=== PATIENT | male | born 1980 | race Caucasian/White ===

== ENCOUNTER 2017-02-20 10:43 | Emergency (ER) | payer OTHER ==
[~2017-02-20] VITALS: Ht 175.3 cm; Wt 74.8 kg
--- NOTE | 2017-02-20 11:34 | Emergency Room Report ---
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 N Clinical Suspician of Infection? N Mental Status: 1 - Regular (Normal Baseline) Sepsis Risk:Low Sepsis Risk Have you (or family members/close friends) recently traveled outside the [place]? N If Yes, where/when: Have you had exposure to infectious disease within the past month? TB? Other? Specify: Source patient, RN notes reviewed, family, RN/MD Exam Limitations no limitations Comment This is a 36-year-old occasion male presenting to the emergency room with a LEFT fingertip laceration sustained around 10:30 AM, while at work, after accidentally slicing his fingertip with a knife. She denies any other associated injuries. ALLERGIES Coded Allergies: sulfamethoxazole (From BACTRIM) (Mild, 02/20/17) trimethoprim (From BACTRIM) (Mild, 02/20/17) History Medical History General More? No Immunization Hx Ped.Immunizations UTD Yes DT/Tetanus 1-4 Years Ago Surgical Hx Previous Surgery?Y TESTICLE SURGERY LEFT TESTICLE (3 TOTAL) Social History Smoking Hx Smoker: Never Smoker Tobacco: No Type N/A Are you/the child exposed to second-hand smoke: No Review of Systems All Other Systems Reviewed and Negative Skin lesions (LEFT index laceration) Physical Exam Vital Signs Vital Signs Date Time Temp Pulse Resp B/P Pulse O2 O2 Flow FiO2 Ox Delivery Rate 02/20 1136 95 18 124/75 99 02/20 1049 98.4 112 18 117/65 98 General Appearance normal appearance, WD/WN, mild distress, very anxious Respiratory Status Yes: trachea midline, chest symmetrical, non tender chest. No: respiratory distress. Lung Sounds bilateral: normal breath sounds, lungs clear. Cardiovascular normal exam, regular rate/rhythm, no peripheral edema, no gallop, no JVD, no murmur, no rub, normal peripheral pulses Gastrointestinal normal bowel sounds, normal exam, non tender, soft, no organomegaly Extremities normal range of motion, LEFT index with 0.5 cm subcutaneous laceration, mild venous bleeding Neurologic alert, taper printed circuit layout II-XII nml as tested, normal exam, oriented x 3 Mental status normal mood/affect Skin normal color, warm/dry, LEFT index tip with half centimeter subcutaneous laceration, linear, with mild venous bleeding, controlled with pressure. Medical Decision Making LABS/Meds/Orders Pt receiving controlled substance in ED? No Comment Advised patient that he will be needing sutures, in order to close his wound. Patient adamantly refused sutures, despite my repeated explanations that this is medically necessary. Pressure dressing applied over his LEFT index stable, patient instructed to change dressing daily per discharge instructions. Results/Orders Current Medication Orders Sig/Oma Start time Last Medication Dose Route Stop Time Status Admin Acetaminophen 0 .STK-MED ONE 02/20 1133 DCr PO Acetaminophen 1,000 MG ONCE ONE 02/20 1115 DCr 02/20 PO 02/20 1116 1135 Diphtheria/Pertussis/ 0.5 ML ONCE ONE 02/20 1100 DC 02/20 Tetanus Vacc IM 02/20 1101 1100 Diphtheria/Pertussis/ 0 .STK-MED ONE 02/20 1054 DC Tetanus Vacc IM Lidocaine HCl 0 .STK-MED ONE 02/20 1054 DC .ROUTE Procedures Laceration/Wound Repair Laceration/Wound Repair Risks/benefits discussed with pt/guardian? Yes Tetanus status up to date Wound Location finger(s) (LEFT second finger) Wound Length (cm) 0.5 Wound's Depth, Shape superficial Wound Explored clean Risk of retained FB explained to pt/guardian? Yes Irrigated w/ Saline (ccs) 10 Wound Prep Betadine, Saline Anesthesia 1% Lidocaine, Digital block Volume Anesthetic (ccs) 20 Wound Debrided none Wound Repaired With refused surgical sutures/closure Sterile Dressing Applied Yes Splint Applied No Departure Departure Time of Disposition 1132 Disposition DC Home or Self Care(routine) Clinical Impression Primary Impression: Laceration Condition STABLE Patient Instructions DI for Minor Laceration Additional Instructions This keep wound clean and dry, change dressing daily x 10 days, watch carefully for any possible local infection. Discharge Counseling Counseled pt/family regarding diagnosis, medications/RX, home care, follow up needs Comment This keep wound clean and dry, change dressing daily x 10 days, watch carefully for any possible local infection. ED Critical Care Critical Care No at 1203
[2017-02-20 11:36] VITALS: BP 124/75
--- OUTSIDE RECORDS SUMMARY | 2017-02-20 11:44 | External Medical Summary Rpt ---
Demographics Home Phone Preferred Language Welsh Marital Status Unknown Adventist Affiliation Unknown Race Unknown Ethnic Group Unknown Author Author , Organization [employer] Address Unknown Phone Unavailable Care Team Providers Care Silica Mixer Operator Name Role Phone [facility] Unavailable Unavailable HOSPITAL, [facility] LILLIAN MAURICIO Unavailable Unavailable ASAD CHEEMA HUHN, Unavailable Unavailable [facility], Unavailable Unavailable [facility] Unavailable Unavailable SERVICES, [facility] EARLINE HUTCHINSON, Ansley HUTCHINSON Purpose Continuity of Care Document - 02-24-2010 through 2016 Problems Code Diagnosis DOS Provider Status 7245 UNSPECIFIED 04-24-2010 [facility] 7291 UNSPECIFIED 04-24-2010 [facility] 89699 CONTUSION 04-24-2010 [facility] 4589 UNSPECIFIED 03-22-2010 [facility] 462 ACUTE 03-22-2010 [facility] 4659 ACUTE URIS 03-22-2010 [facility] UNSPECIFIED SERVICES SITE 21235 OTHER 03-22-2010 [place] [facility] 59191 WHEEZING 03-22-2010 [facility] 7862 COUGH 03-22-2010 [facility] 85996 PAINFUL 03-22-2010 [facility] 19523 DIAB W/O 03-05-2010 EARLINE HUTCHINSON COMP TYPE B II/UNS NOT STATED UNCNTRL 7078 CHRONIC 03-05-2010 EARLINE HUTCHINSON ULCER OF B OTHER SPECIFIED SITE 1330 SCABIES 02-24-2010 [facility] 6989 UNSPECIFIED 02-24-2010 [place] [facility] [id number] Encounters Encounter Start End Date Code Location Performer Type Date EMERGENCY [address]507 [place] 0 0 [facility] T VISIT LOW/MODER SEVERITY [facility] - 0 0 [facility] T EMERGENCY [address] [place] [facility]IC[place] [address] [facility] T VISIT HIGH/URGE NT SEVERITY EMERGENCY 46346 [facility] T VISIT MODERATE SEVERITY OFFICE 88744 [facility] 0 0 [facility] T VISIT 15 MINUTES [facility]ERG[facility] 82047 [facility] T VISIT MODERATE SEVERITY [facility] T
--- OUTSIDE RECORDS SUMMARY | 2017-02-20 11:44 | External Medical Summary Rpt ---
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 94905 CONTUSION 04-24-2010 [facility] 4589 UNSPECIFIED 03-22-2010 [facility] 462 ACUTE 03-22-2010 [facility] 4659 ACUTE URIS 03-22-2010 [facility] UNSPECIFIED SERVICES SITE 26728 OTHER 03-22-2010 [place] [facility] C[facility]ITY [facility] SINUSES 14599 WHEEZING 03-22-2010 [facility] 7862 COUGH 03-22-2010 [facility] 65718 PAINFUL 03-22-2010 [facility] 54877 DIAB W/O 03-05-2010 EARLINE HUTCHINSON COMP TYPE B II/UNS NOT STATED UNCNTRL 7078 CHRONIC 03-05-2010 EARLINE HUTCHINSON ULCER OF B OTHER SPECIFIED SITE 1330 SCABIES 02-24-2010 [facility] 6989 UNSPECIFIED 02-24-2010 [place] [facility] [id number] Encounters Encounter Start End Date Code Location Performer Type Date EMERGENCY 13905 [place] 0 0 [facility] T VISIT [facility]OW/MODER SEVERITY [facility] 0 [facility] [place] - 0 0 [facility] T EMERGENCY 71014 ZENAIDA HICKS 0 0 EMERGENCY [facility] SERVICES T VISIT HIGH/URGE NT SEVERITY EMERGENCY 12828 [facility] T VISIT MODERATE SEVERITY OFFICE 79308 [facility] 0 0 [facility] T VISIT 15 MINUTES EMERGENCY 94889 [facility] T VISIT MODERATE SEVERITY [facility] T
--- OUTSIDE RECORDS SUMMARY | 2017-02-20 11:45 | External Medical Summary Rpt ---
Author Author , Organization [employer] Address Unknown Phone Unavailable Care Team Providers Care Multiple Coil Winder Name Role Phone [facility] Unavailable Unavailable HOSPITAL, [facility] LILLIAN HICKS, LILLIAN HICKS Unavailable Unavailable ASAD CHEEMA, ANETTE, Unavailable Unavailable [facility], Unavailable Unavailable [facility] Unavailable Unavailable SERVICES, [facility] EARLINE HUTCHINSON, EVANGELINA, Ansley Unavailable [facility] Purpose Continuity of Care Document - 02-24-2010 through 2016 Problems Code Diagnosis DOS Provider Status 7245 UNSPECIFIED 04-24-2010 [facility] 7291 UNSPECIFIED 04-24-2010 [facility] 12107 CONTUSION 04-24-2010 [facility] 4589 UNSPECIFIED 03-22-2010 [facility] 462 ACUTE 03-22-2010 [facility] 4659 ACUTE URIS 03-22-2010 [facility] UNSPECIFIED SERVICES SITE 70864 OTHER 03-22-2010 [place] [facility] C[facility]ITY [facility] SINUSES 01267 WHEEZING 03-22-2010 [facility] 7862 COUGH 03-22-2010 [facility] 11351 PAINFUL 03-22-2010 [facility] 84164 DIAB W/O 03-05-2010 EARLINE HUTCHINSON COMP TYPE B II/UNS NOT STATED UNCNTRL 7078 CHRONIC 03-05-2010 EARLINE HUTCHINSON ULCER OF B OTHER SPECIFIED SITE 1330 SCABIES 02-24-2010 [facility] 6989 UNSPECIFIED 02-24-2010 [facility] Encounters Encounter Start End Date Code Location Performer Type Date EMERGENCY 36270 SH[place] 0 0 E [facility] T VISIT LOW/MODER SEVERITY [facility] [place] - 0 0 [facility] T EMERGENCY 13416 ZENA[place] [facility]IC[place] 0 0 EMERGENCY [facility] T VISIT HIGH/URGE NT SEVERITY EMERGENCY 30825 [place] 0 0 [facility] T VISIT MODERATE SEVERITY OFFICE 11367 [facility] 0 0 [facility] T VISIT 15 MINUTES [facility] - 0 0 [facility] T EMERGENCY 37068 [place] 0 0 [facility] T VISIT MODERATE SEVERITY
--- OUTSIDE RECORDS SUMMARY | 2017-02-20 11:45 | External Medical Summary Rpt ---
Author Author REJI June, [employer] Organization [employer] Address Unknown Phone Unavailable
--- OUTSIDE RECORDS SUMMARY | 2017-02-20 11:45 | External Medical Summary Rpt ---
Demographics Preferred Language Mexican Marital Status Unknown Hinduism Affiliation Unknown Race Unknown Ethnic Group Unknown Author Author , Organization [employer] Address Unknown Phone Unavailable Purpose Continuity of Care Document - through 2016 Immunization No patient found.
--- OUTSIDE RECORDS SUMMARY | 2017-02-20 11:45 | External Medical Summary Rpt ---
Demographics Preferred Language Ivorian Marital Status Unknown Yazdanism Affiliation Unknown Race Unknown Ethnic Group Unknown Author Author , Organization [employer] Address Unknown Phone Unavailable Purpose Continuity of Care Document - through 2016 Immunization No patient found.
--- OUTSIDE RECORDS SUMMARY | 2017-02-20 11:45 | External Medical Summary Rpt ---
Author Author , Organization [employer] Address Unknown Phone Unavailable Care Team Providers Care Intelligence Research Specialist Name Role Phone [facility] Unavailable Unavailable HOSPITAL, [facility] LILLIAN HICKS, LILLIAN HICKS Unavailable Unavailable ASAD CHEEMA, ANETTE, Unavailable Unavailable [facility], Unavailable Unavailable [facility] Unavailable Unavailable SERVICES, [facility] EARLINE HUTCHINSON, EVANGELINA, Ansley Unavailable [facility] Purpose Continuity of Care Document - 02-24-2010 through 2016 Problems Code Diagnosis DOS Provider Status 7245 UNSPECIFIED 04-24-2010 [facility] 7291 UNSPECIFIED 04-24-2010 [facility] 74538 CONTUSION 04-24-[address] [facility] [place] 4589 UNSPECIFIED 03-22-2010 [facility] 462 ACUTE 03-22-2010 [facility] 4659 ACUTE URIS 03-22-2010 [facility] UNSPECIFIED SERVICES SITE 63999 OTHER 03-22-2010 [place] [facility] C[facility]ITY [facility] S[facility]US[facility] 14105 WHEEZING 03-22-2010 [facility] 7862 COUGH 03-22-2010 [facility] 73236 PAINFUL 03-22-2010 [facility] 90704 DIAB W/O 03-05-2010 EARLINE HUTCHINSON COMP TYPE B II/UNS NOT STATED UNCNTRL 7078 CHRONIC 03-05-2010 EARLINE HUTCHINSON ULCER OF B OTHER SPECIFIED SITE 1330 SCABIES 02-24-2010 [facility] 6989 UNSPECIFIED 02-24-2010 [facility] Encounters Encounter Start End Date Code Location Performer Type Date EMERGENCY 26986 SH[place]MAN[place] 0 0 E [facility] T VISIT LOW/MODER SEVERITY [facility] EMERGENCY 52082 [facility] [facility] 0 0 EMERGENCY [facility] T VISIT HIGH/URGE NT SEVERITY EMERGENCY 91022 [place] 0 0 [facility] T VISIT MODERATE SEVERITY OFFICE 29517 [facility] 0 0 [facility] T VISIT 15 MINUTES [facility] - 0 0 [facility] T EMERGENCY 37828 [place] 0 0 [facility] T VISIT MODERATE SEVERITY
== END 2017-02-20 12:36 | disposition home or self-care (01) ==
LOC: ER 10:43
DX: S61.211A Laceration without foreign body of left index finger without damage to nail, initial encounter (principal); W26.0XXA Contact with knife, initial encounter; Y92.69 Other specified industrial and construction area as the place of occurrence of the external cause; Y99.0 Civilian activity done for income or pay; Z23 Encounter for immunization

== ENCOUNTER 2017-09-05 16:35 | Emergency (ER) | payer MEDICAID ==
[~2017-09-05] VITALS: Ht 175.3 cm; Wt 72.6 kg
--- OUTSIDE RECORDS SUMMARY | 2017-09-05 16:46 | External Medical Summary Rpt | CCD ---
Author Author , REJI MENDOZA Address Unknown Phone [email or web address] Care Team Providers Care Sketch Liner Name Role Phone [facility] Unavailable Unavailable H[facility]PITAL, [facility] ASAD CHEEMA, ANETTE, Unavailable Unavailable [facility], Unavailable Unavailable [facility] Unavailable Unavailable SERVICES, [facility] EARLINE HUTCHINSON, EVANGELINA, Ansley Unavailable [facility] Purpose Continuity of Care Document - 02-24-2010 through 2016 Problems Code Diagnosis DOS Provider Status 7245 UNSPECIFIED 04-24-2010 [facility] 7291 UNSPECIFIED 04-24-2010 [facility] 97706 CONTUSION 04-24-2010 [facility] 4589 UNSPECIFIED 03-22-2010 [facility] 462 ACUTE 03-22-2010 [facility] 4659 ACUTE URIS 03-22-2010 [facility] UNSPECIFIED SERVICES SITE 33655 OTHER 03-22-2010 [place] [facility] C[facility]US[facility] 86550 WHEEZING 03-22-2010 [facility] 7862 COUGH 03-22-2010 [facility] 13967 PAINFUL 03-22-2010 [facility] 58265 DIAB W/O 03-05-2010 EARLINE HUTCHINSON COMP TYPE B II/UNS NOT STATED UNCNTRL 7078 CHRONIC 03-05-2010 EARLINE HUTCHINSON ULCER OF B OTHER SPECIFIED SITE 1330 SCABIES 02-24-2010 [facility] 6989 UNSPECIFIED 02-24-2010 [place] [facility] Encounters Encounter Start End Date Code Location Performer Type Date [facility] 0 0 [facility] [place] [facility] 0 0 [facility] [place] [facility] 0 0 [facility]
--- OUTSIDE RECORDS SUMMARY | 2017-09-05 16:46 | External Medical Summary Rpt | CCD ---
Demographics Preferred Language Eritrean Marital Status Unknown Zoroastrian Affiliation Unknown Race Unknown Ethnic Group Unknown Author Author , REJI MENDOZA Address Unknown Phone Immunization No patient found.
--- OUTSIDE RECORDS SUMMARY | 2017-09-05 16:46 | External Medical Summary Rpt ---
Author Author HILARIAYOANA June, [employer] Address Unknown Phone Unavailable Results Amylase [Enzymatic activity/volume] in Serum or Plasma Observa Value Referen Units Interpr Notes Date tion ce etation Range Amylase 25 - 115 U/L Normal No Apr 25 [Enzymati informati 2017 c on in 11:25 PM activity/ source volume] data in Serum or Plasma Comprehensive metabolic 2000 panel in Serum or Plasma Observa Value Referen Units Interpr Notes Date tion ce etation Range Albumin/G 1.1 - 1.8 No Normal No Apr 25 lobulin informati informati 2016 [Mass on in on in 11:25 PM ratio] in source source Serum or data data Plasma Albumin 3.4 - 5.0 gm/dL Normal No Apr 25 [Mass/vol informati 2016 ume] in on in 11:25 PM Serum or source Plasma data Alkaline 46 - 116 U/L Normal No Apr 25 phosphata informati 2016 se on in 11:25 PM [Enzymati source c data activity/ volume] in Serum or Plasma Bilirubin 0.2 - 1.0 mg/dL Normal No Apr 25 .total informati 2016 [Mass/vol on in 11:25 PM ume] in source Serum or data Plasma Urea 7 - 18 mg/dL High No Apr 25 nitrogen informati 2016 [Mass/vol on in 11:25 PM ume] in source Serum or data Plasma Calcium 8.5 - mg/dL Normal No Apr 25 [Mass/vol 10.1 informati 2016 ume] in on in 11:25 PM Serum or source Plasma data Chloride 98 - 107 mmoL/L Normal No Apr 25 [Moles/vo informati 2017 lume] in on in 11:25 PM Serum or source Plasma data Carbon 21.0 - mmoL/L High No Apr 25 dioxide, 32.0 informati 2017 total on in 11:25 PM [Moles/vo source lume] in data Serum or Plasma Creatinin 0.70 - mg/dL High No Apr 25 e 1.30 informati 2017 [Mass/vol on in 11:25 PM ume] in source Serum or data Plasma Creatinin 50 - 200 ML/MIN Normal No Apr 25 e renal informati 2016 clearance on in 11:25 PM source predicted data by Cockcroft -Gault formula Estimated >60 ML/MIN No REFERENCE Apr 25 informati RANGE: 2017 glomerula on in >60 11:25 PM r source ML/MIN/1. filtratio data 73 SQUARE n rate METERSIf (GF this patient is -A merican, then multiply theresult by 1.210. Globulin 1.3 - 3.2 gm/dL High No Apr 25 [Mass/vol informati 2016 ume] in on in 11:25 PM Serum source data Glucose 74 - 106 mg/dL High No Apr 25 [Mass/vol informati 2016 ume] in on in 11:25 PM Serum or source Plasma data Potassium 3.5 - 5.1 mmoL/L Normal No Apr 252016 [Moles/vo on in 11:25 PM lume] in source Serum or data Plasma Sodium 136 - 145 mmoL/L Normal No Apr 25 [Moles/vo informati 2016 lume] in on in 11:25 PM Serum or source Plasma data Aspartate 15 - 37 U/L Normal No Apr 252016 aminotran on in 11:25 PM sferase source [Enzymati data c activity/ volume] in Serum or Plasma Alanine 12 - 78 U/L Normal No Apr 25 aminotran 2016 sferase on in 11:25 PM [Enzymati source c data activity/ volume] in Serum or Plasma Protein 6.4 - 8.2 gm/dL High No Apr 25 [Mass/vol informati 2016 ume] in on in 11:25 PM Serum or source Plasma data Lipase [Enzymatic activity/volume] in Serum or Plasma Observa Value Referen Units Interpr Notes Date tion ce etation Range Lipase 73 - 393 U/L Normal No Apr 25 [Enzymati informati 2017 c on in 11:25 PM activity/ source volume] data in Serum or Plasma CBC W Auto Differential panel in Blood Observa Value Referen Units Interpr Notes Date tion ce etation Range Basophils 0 - 0.2 K/MM3 Normal No Apr 25 inform2016 [#/volume on in 11:25 PM ] in source Blood by data Automated count Basophils 0.1 - 2.0 % Normal No Apr 25 inform2016 leukocyte on in 11:25 PM s in source Blood by data Automated count Eosinophi 0.0 - 0.4 K/mm3 Normal No Apr 25 ls informati 2016 [#/volume on in 11:25 PM ] in source Blood by data Automated count Eosinophi 0.1 - % Normal No Apr 25 ls/100 12.0 inform2016 leukocyte on in 11:25 PM s in source Blood by data Automated count Granulocy 1.3 - 8.0 K/mm3 Normal No Apr 25 corbin inform2016 [#/volume on in 11:25 PM ] in source Blood by data Automated count Granulocy 37.0 - % Normal No Apr 25 corbin/100 80.0 informati 2016 leukocyte on in 11:25 PM s in source Blood by data Automated count Hematocri 42.0 - % Normal No Apr 25 t [Volume 52.0 ati 2016 on in 11:25 PM Fraction] source of Blood data Hemoglobi 14.1 - g/dL Normal No Apr 25 n 18.0 informati 2016 [Mass/vol on in 11:25 PM ume] in source Blood data Lymphocyt 0.7 - 4.5 K/mm3 Normal No Apr 25 es inform2016 [#/volume on in 11:25 PM ] in source Unspecifi data ed specimen by Automated count Lymphocyt 10 - 50 % Normal No Apr 25 es 2016 [#/volume on in 11:25 PM ] in source Unspecifi data ed specimen by Automated count Erythrocy 27 - 31.2 pg High No Apr 25 te mean 2016 corpuscul on in 11:25 PM ar source hemoglobi data n [Entitic mass] Erythrocy 31.8 - g/dl Normal No Apr 25 te mean 35.4 2016 corpuscul on in 11:25 PM ar source hemoglobi data n concentra tion [Mass/vol ume] by Automated count Erythrocy 82.2 - fl High No Apr 25 te mean 97.8 2016 corpuscul on in 11:25 PM ar volume source [Entitic data volume] by Automated count Monocytes 0.1 - 1.0 K/mm3 Normal No Apr 25 inform2016 [#/volume on in 11:25 PM ] in source Blood by data Automated count Monocytes 1.7 - 9.3 % Normal No Alex 18 /100 informati 2016 leukocyte on in 11:25 PM s in source Blood by data Automated count Platelet 7.4 - fl Normal No Apr 25 mean 10.4 inform2016 volume on in 11:25 PM [Entitic source volume] data in Blood by Automated count Platelets 142 - 424 K/mm3 Normal No Apr 25 informati 2016 [#/volume on in 11:25 PM ] in source Blood data Erythrocy 4.6 - 6.2 M/mm3 Low No Apr 25 corbin informati 2016 [#/volume on in 11:25 PM ] in source Amniotic data fluid Erythrocy 11.5 - % Normal No Apr 25 te 17.5 informati 2016 distribut on in 11:25 PM ion width source [Entitic data volume] by Automated count Leukocyte 4.8 - K/MM3 Normal No Apr 25 s 10.8 inform2016 [#/volume on in 11:25 PM ] in source Blood data Drugs identified in Urine by Screen method Observa Value Referen Units Interpr Notes Date tion ce etation Range Positive urine drug screen samples are stored for 7 days. Contact the Lab if confirmation of positives is needed. Ampheta NEGATIV <1000 ng/mL No No Apr 25 mine E informa informa 2016 [Presen tion in tion in 11:15 ce] in source source PM Urine data data by Screen method Barbitura <200 ng/mL No No Apr 25 corbin informati informati 2016 [Mass/vol on in on in 11:15 PM ume] in source source Urine by data data Screen method Benzodiaz 200 ng/mL ng/mL High This is Apr 25 epines an 2016 [Mass/vol UNCONFIRM 11:15 PM ume] in ED Serum or result. Plasma by This Screen result is method for medicalpu rposes and/or treatment only. Cocaine <300 ng/g No No Apr 25 [Mass/vol informati informati 2016 ume] in on in on in 11:15 PM Unspecifi source source ed data data specimen Methadone <300 ng/mL No No Apr 25 informati informati 2016 [Mass/vol on in on in 11:15 PM ume] in source source Unspecifi data data ed specimen Opiates <300 ng/mL High This is Apr 25 [Mass/vol an 2016 ume] in UNCONFIRM 11:15 PM Unspecifi ED ed result. specimen This result is for medicalpu rposes and/or treatment only. Phencycli <25 ng/mL No No Apr 25 dine informati informati 2017 [Mass/vol on in on in 11:15 PM ume] in source source Unspecifi data data ed specimen 11-Hydr POSITIV <50 ng/mL Abnorma This is Apr 25 oxy E l an 2017 delta-9 UNCONFI 11:15 RMED PM tetrahy result. drocann This abinol result [Presen is for ce] in medical Unspeci purpose fied s specime and/or n treatme nt only.
--- OUTSIDE RECORDS SUMMARY | 2017-09-05 16:46 | External Medical Summary Rpt | CCD ---
Author Author , REJI MENDOZA Address Unknown Phone [email or web address] Medical Care Team Providers Care Supervisor Rose Grading Name Role Phone [facility] Unavailable Unavailable HOSPITAL, [facility] SAAD CHEEMA, ANETTE, Unavailable Unavailable [facility], Unavailable Unavailable [facility] Unavailable Unavailable SERVICES, [facility] EARLINE HUTCHINSON, EVANGELINA, [facility] [place] Purpose Continuity of Care Document - 02-24-2010 through 2016 Problems Code Diagnosis DOS Provider Status F17.210 NICOTINE 05-08-2017 DEPENDENCE, CIGARETTES, UNCOMPLICAT ED N50.811 RIGHT 05-08-2017 TESTICULAR PAIN R10.31 RIGHT LOWER 05-08-2017 QUADRANT PAIN R11.0 NAUSEA 05-08-2017 R19.7 DIARRHEA, 05-08-2017 UNSPECIFIED Z88.2 ALLERGY 05-08-2017 STATUS TO SULFONAMIDE S STATUS 7245 UNSPECIFIED 04-24-2010 [facility] 7291 UNSPECIFIED 04-24-2010 [facility] 75244 CONTUSION 04-24-2010 [facility] 4589 UNSPECIFIED 03-22-2010 [facility] 462 ACUTE 03-22-2010 [facility] 4659 ACUTE URIS 03-22-2010 [facility] UNSPECIFIED SERVICES SITE 72992 OTHER 03-22-2010 [place] [facility] CAVITY AND SINUSES 19870 WHEEZING 03-22-2010 [facility] 7862 COUGH 03-22-2010 [facility] 47065 PAINFUL 03-22-2010 [facility] 03909 DIAB W/O 03-05-2010 EARLINE HUTCHINSON COMP TYPE B II/UNS NOT STATED UNCNTRL 7078 CHRONIC 03-05-2010 [facility] HUTCHIN[facility] ULCER OF B OTHER SPECIFIED SITE 1330 SCABIES 02-24-2010 [facility] 6936 UNSPECIFIED 02-24-2010 [place] [facility] [id number] R10.9 UNSPECIFIED ABDOMINAL PAIN Results Labs Lab Lab Date Result Refere Interp Status Commen Order Detail nces retati t Range on Drugs identified in Urine by Screen method (04-25-2017 23:15) Ampheta NEGATIV <1000 complet mine 017 E ed [Presen 23:15 ce] in Urine by Screen method POSITIV <50 Abnorma complet oxy 017 E l ed delta-9 23:15 tetrahy drocann abinol [Presen ce] in Unspeci fied specime n Encounters Encounter Start End Date Code Location Performer Type Date [facility] [place] [facility] [place] - 0 0 [facility] T
--- OUTSIDE RECORDS SUMMARY | 2017-09-05 16:46 | External Medical Summary Rpt | CCD ---
Author Author , REJI MENDOZA Address Unknown Phone [email or web address] Care Team Providers Care Film Reproducer Name Role Phone [facility] Unavailable Unavailable HOSPITAL, [facility] ASAD CHEEMA, ANETTE, Unavailable Unavailable [facility], Unavailable Unavailable [facility] Unavailable Unavailable SERVICES, [facility] EARLINE HUTCHINSON, EVANGELINA, [facility] Unavailable [facility] Purpose Continuity of Care Document - 02-24-2010 through 2016 Problems Code Diagnosis DOS Provider Status 7245 UNSPECIFIED 04-24-2010 [facility] 7291 UNSPECIFIED 04-24-2010 [facility] 85136 CONTUSION 04-24-2010 [facility] 4589 UNSPECIFIED 03-22-2010 [facility] 462 ACUTE 03-22-2010 [facility] 4659 ACUTE URIS 03-22-2010 [facility] UNSPECIFIED SERVICES SITE 50314 OTHER 03-22-2010 [place] [facility] CAVITY AND SINUSES 32085 WHEEZING 03-22-2010 [facility] 7862 COUGH 03-22-2010 [facility] 23751 PAINFUL 03-22-2010 [facility] 05922 DIAB W/O 03-05-2010 EARLINE HUTCHIN[facility] COMP TYPE B II/UNS NOT STATED UNCNTRL 7078 CHRONIC 03-05-2010 EARLINE HUTCHINSON ULCER OF B OTHER SPECIFIED SITE 1330 SCABIES 02-24-2010 [facility] 6989 UNSPECIFIED 02-24-2010 [place] [facility] Encounters Encounter Start End Date Code Location Performer Type Date [facility]OSPITAL [facility] - 0 0 [facility] [place] - 0 0 [facility] [place] - 0 0 [facility]
--- OUTSIDE RECORDS SUMMARY | 2017-09-05 16:46 | External Medical Summary Rpt | CCD ---
Demographics Preferred Language Moroccan Marital Status Unknown Restorationism Affiliation Unknown Race Unknown Ethnic Group Unknown Author Author , REJI MENDOZA Address Unknown Phone Immunization No patient found.
--- OUTSIDE RECORDS SUMMARY | 2017-09-05 16:46 | External Medical Summary Rpt | CCD ---
Author Author , REJI MENDOZA Address Unknown Phone [email or web address] Team Providers Care Manufacturing Group Leader Name Role Phone [facility] Unavailable Unavailable HOSPITAL, [facility] ASAD CHEEMA, ANETTE, Unavailable Unavailable [facility], Unavailable [facility]available [facility] Unavailable Unavailable SERVICES, [facility] EARLINE HUTCHINSON, EVANGELINA, [facility] [place] Purpose Continuity of Care Document - 02-24-2010 through 2016 Problems Code Diagnosis DOS Provider Status F17.210 NICOTINE 05-08-2017 DEPENDENCE, CIGARETTES, UNCOMPLICAT ED N50.811 RIGHT 05-08-2017 TESTICULAR PAIN R10.31 RIGHT LOWER 05-08-2017 QUADRANT PAIN R11.0 NAUSEA 05-08-2017 R19.7 DIARRHEA, 05-08-2017 UNSPECIFIED Z88.2 ALLERGY 05-08-2017 STATUS TO SULFONAMIDE S STATUS 7245 UNSPECIFIED 04-24-2010 [facility] 7291 UNSPECIFIED 04-24-2010 [facility] 08854 CONTUSION 04-24-[address] [facility] 4589 UNSPECIFIED 03-22-2010 [facility] 462 ACUTE 03-22-2010 [facility] 4659 ACUTE URIS 03-22-2010 [facility] UNSPECIFIED SERVICES SITE 93113 OTHER 03-22-2010 [place] [facility] COUNT INCLUDES [facility] CAVITY AND SINUSES 99430 WHEEZING 03-22-2010 [facility] 7862 COUGH 03-22-2010 [facility] 78584 PAINFUL 03-22-2010 [facility] 29720 DIAB W/O 03-05-2010 EARLINE HUTCHINSON COMP TYPE B II/UNS NOT STATED UNCNTRL 7078 CHRONIC 03-05-2010 EARLINE HUTCHINSON ULCER OF B OTHER SPECIFIED SITE 1330 SCABIES 02-24-2010 [facility] 6991 UNSPECIFIED 02-24-2010 [facility] [id number] R10.9 UNSPECIFIED ABDOMINAL PAIN Results Labs Lab [...] Type Date [facility] [place] [facility] 0 [facility] [place] - 0 0 [facility] T
--- OUTSIDE RECORDS SUMMARY | 2017-09-05 16:46 | External Medical Summary Rpt ---
Author Author HILARIAYOANA June, [employer] Address Unknown Phone Unavailable [...]
--- NOTE | 2017-09-05 17:29 | Urgent Treatment Center Report ---
History of Present Issue Date/Time Seen by Provider 09/05/17 1728 Visit Reason Pt arrived:Walked Presenting Problem:NAUSEA, DIARRHEA, ABD PAIN BEGAN MONDAY Location if Accident: Onset of symptoms date/time:/ or onset unknown for:MEDICAL HX UNKNOWN Have you (or family members/close friends) recently traveled outside the [place]? N If Yes, where/when: Have you had exposure to infectious disease within the past month? TB? Other? Specify: Patient state that he thinks he may have the stomach virus States that for the last 3 days he has been having nausea, vomiting diarrhea and cramping State that today the diarrhea and vomiting stopped but now he thinks he may be dehydrated States that he feels tired and weak State that he just feels achy all over State that his daughter has the same thing and will be in shortly to get checked out ALLERGIES Coded Allergies: sulfamethoxazole (From BACTRIM) (Mild, 02/20/17) trimethoprim (From BACTRIM) (Mild, 02/20/17) Home Medications Reported Medications No Known Home Medications History Medical History General CAD? No Angina: No PA: No Hypertension? No Hyperlipidemia? No CHF? No DVT? No PE? No COPD? No Asthma? No Anemia? No GERD? No Gastric ulcers? No GI Bleed? No Hernia? No Thyroid Problems? No Hypothyroidism? No CVA? No Seizures? No Diabetes? No Renal Insuffiency? No UTI? No Stones? No BPH? No GB Disease: No Nephritic Syndrome? No Asplenia? No Hepatitis? No Sickle Cell Disease? No Arthritis? No Migraines? No Cataracts? No Glaucoma? No MRSA? No HIV? No TB? No Anxiety? No Depression? 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 Immunization HX DT/Tetanus 1-4 Years Ago Surgical Hx Previous Surgery?Y TESTICLE SURGERY LEFT TESTICLE (3 TOTAL) METAL PLATE IN JAW VYSECTOMY Social History Smoking Hx Smoker: Never Smoker Tobacco: No Packs/day < 1 Pack Alcohol Alcohol: Yes Review of Systems All Other Systems Reviewed and Negative Gastrointestinal diarrhea, nausea, vomiting Physical Exam Vital Signs Vital Signs Date Time Temp Pulse Resp B/P Pulse O2 O2 Flow FiO2 Ox Delivery Rate 09/05 1744 16 09/05 1708 98.0 74 18 108/64 100 General Appearance normal appearance, WD/WN, no apparent distress, laying on exam table Ear, Nose, Throat lips appeared slightly dry, cracked Respiratory Status Yes: trachea midline, chest symmetrical, non tender chest. No: respiratory distress. Lung Sounds bilateral: normal breath sounds, lungs clear. Cardiovascular normal exam, regular rate/rhythm, no peripheral edema Gastrointestinal normal bowel sounds, normal exam, soft, no guarding, no rebound Neurologic alert, normal exam, oriented x 3 Medical Decision Making LABS/Meds/Orders Pt receiving controlled substance in ED? No Results/Orders Current Medication Orders Sig/Oma Start time Last Medication Dose Route Stop Time Status Admin Sodium Chloride 10 ML PRN PRN 09/05 1800 AC IV 09/06 1747 Ketorolac 30 MG ONCE ONE 09/05 1745 DC 09/05 Tromethamine IV 09/05 Ondansetron HCl 8 MG ONCE ONE 09/05 1745 DC 09/05 IV 09/05 Ondansetron HCl 0 .STK-MED ONE 09/05 1743 DC .ROUTE Ketorolac 0 .STK-MED ONE 09/05 1742 DC Tromethamine .ROUTE Sodium Chloride 1,000 ML .STK-MED ONE 09/05 1726 DC IV Orders Procedure Date/time Status IV SALINE LOCK 09/05 [address] [facility] Progress Notes Comment Patient resting quietly on exam table state that he feels better since medication and fluid infusing Asking for ice chips Will allow him to eat some ice chips and if able to keep them down discharge him home with family after competion of IV bolus Departure Departure Time of Disposition 1830 Disposition DC Home or Self Care(routine) Clinical Impression Primary Impression: Gastroenteritis Condition STABLE Patient Instructions Viral Gastroenteritis Additional Instructions try very small amounts of water or suck on ice chips. diarrhea. children and infants should use products formulated for children, like oral rehydration solutions. Never give aspirin to children or teenagers with a viral illness. This can cause Liborio syndrome, a potentially life-threatening condition. Discharge Counseling Counseled pt/family regarding diagnosis, medications/RX, home care, follow up needs Prescriptions Current Visit Scripts No Known Home Medications at 1830
[2017-09-05 18:37] VITALS: BP 108/64
== END 2017-09-05 18:37 | disposition home or self-care (01) ==
LOC: UTC 16:35
DX: A08.4 Viral intestinal infection, unspecified (principal); Z88.2 Allergy status to sulfonamides
CPT/HCPCS: J2405